=== PATIENT | female | born 1945 | race Caucasian/White ===

== ENCOUNTER 2019-09-09 14:36 | Observation (INO) ==
[2019-09-09 17:25] VITALS: BMI 25.0
[2019-09-09 20:45] LABS: BASOPHILS # (AUTO) 0.1 X10^3/uL (0.0-0.1); BASOPHILS % (AUTO) 0.7 % (0.2-1.0); EOSINOPHILS # (AUTO) 0.4 x10^3/uL (0.0-0.2); EOSINOPHILS % (AUTO) 3.5 % (0.9-2.9); HEMATOCRIT 34.1 % (36.0-47.0); HEMOGLOBIN 11.7 g/dL (12.0-16.0); LYMPHOCYTES # (AUTO) 2.3 X10^3/uL (1.3-2.9); LYMPHOCYTES % (AUTO) 22.8 % (21.0-51.0); MEAN CORPUSCULAR HEMOGLOBIN 31.1 pg (27.0-34.0); MEAN CORPUSCULAR HGB CONC 34.3 g/dL (33.0-35.0); MEAN CORPUSCULAR VOLUME 90.6 fL (80.0-100.0); MONOCYTES # (AUTO) 0.6 x10^3/uL (0.3-0.8); MONOCYTES % (AUTO) 6.3 % (0.0-13.0); NEUTROPHILS # (AUTO) 6.8 x10^3/uL (2.2-4.8); NEUTROPHILS % (AUTO) 66.7 % (42.0-75.0); PLATELET COUNT 395 X10^3/uL (150.0-450.0); RED BLOOD COUNT 3.76 X10^6/uL (3.5-5.4); RED CELL DISTRIBUTION WIDTH 13.2 % (11.6-16.5); WHITE BLOOD COUNT 10.1 X10^3/uL (3.6-10.0)
[2019-09-09 21:07] LABS: ALANINE AMINOTRANSFERASE 19 Units/L (12-78); ALBUMIN 2.9 g/dL (3.4-5.0); ALKALINE PHOSPHATASE 89 Units/L (46-116); ASPARTATE AMINO TRANSFERASE 19 Units/L (15-37); BLOOD UREA NITROGEN 17 mg/dL (7-18); CARBON DIOXIDE 32.7 mmol/L (21-32); CHLORIDE 102 mmol/L (98-107); COR CA(FOR HYPOALB) 9.9 mg/dL (8.5-10.1); COR NA(FOR HYPERGLY) 143 mmol/L (136-145); CREATININE 1.06 mg/dL (0.55-1.02); SODIUM 140 mmol/L (136-145); TOTAL PROTEIN 6.7 g/dL (6.4-8.2); TSH (3RD GENERATION) 1.602 uIU/mL (0.358-3.74); eGFR NON BLACK RACES 54 (>60)
[2019-09-09] MEDS: NS 1000 ML 1,000 ML IV SCH (21:46)
[2019-09-10] MEDS ORDERED: TYLENOL 325 MG TAB PO ONE (02:12)
[2019-09-10] MEDS: TYLENOL 325 MG TAB PO PRN (02:19)
[2019-09-10 05:42] LABS: BASOPHILS # (AUTO) 0.1 X10^3/uL (0.0-0.1); BASOPHILS % (AUTO) 0.6 % (0.2-1.0); EOSINOPHILS # (AUTO) 0.3 x10^3/uL (0.0-0.2); EOSINOPHILS % (AUTO) 3.5 % (0.9-2.9); HEMATOCRIT 31.4 % (36.0-47.0); LYMPHOCYTES # (AUTO) 2.6 X10^3/uL (1.3-2.9); LYMPHOCYTES % (AUTO) 27.3 % (21.0-51.0); MEAN CORPUSCULAR HEMOGLOBIN 31.6 pg (27.0-34.0); MEAN CORPUSCULAR VOLUME 90.1 fL (80.0-100.0); MEAN PLATELET VOLUME 8.5 fL (7.4-11.0); MONOCYTES # (AUTO) 0.6 x10^3/uL (0.3-0.8); MONOCYTES % (AUTO) 6.3 % (0.0-13.0); NEUTROPHILS # (AUTO) 5.9 x10^3/uL (2.2-4.8); NEUTROPHILS % (AUTO) 62.3 % (42.0-75.0); PLATELET COUNT 382 X10^3/uL (150.0-450.0); RED BLOOD COUNT 3.48 X10^6/uL (3.5-5.4); RED CELL DISTRIBUTION WIDTH 13.1 % (11.6-16.5); WHITE BLOOD COUNT 9.4 X10^3/uL (3.6-10.0)
[2019-09-10 05:59] LABS: ALANINE AMINOTRANSFERASE 19 Units/L (12-78); ALBUMIN 2.6 g/dL (3.4-5.0); ALKALINE PHOSPHATASE 82 Units/L (46-116); ASPARTATE AMINO TRANSFERASE 16 Units/L (15-37); BLOOD UREA NITROGEN 15 mg/dL (7-18); CALCIUM 8.3 mg/dL (8.5-10.1); CARBON DIOXIDE 29.9 mmol/L (21-32); CHLORIDE 104 mmol/L (98-107); COR CA(FOR HYPOALB) 9.4 mg/dL (8.5-10.1); COR NA(FOR HYPERGLY) 143 mmol/L (136-145); CREATININE 0.88 mg/dL (0.55-1.02); SODIUM 141 mmol/L (136-145); TOTAL PROTEIN 6.2 g/dL (6.4-8.2); eGFR NON BLACK RACES > 60 (>60)
[2019-09-10] MEDS ORDERED: MAGNESIUM SULFATE 1 GRAM/100 mL PREMIX 1 GM/100 ML BAG IV PRN (06:14)
[2019-09-10] MEDS ORDERED: K-DUR TAB 20 MEQ PO PRN (06:14)
[2019-09-10] MEDS ORDERED: KLOR-CON PO PRN (06:14)
[2019-09-10] MEDS ORDERED: POTASSIUM CHL 60 MEQ/NS 0.45% 500 ML IV PRN (06:14)
[2019-09-10] MEDS ORDERED: POTASSIUM CHLORIDE LIQ 20 MEQ UDC PO PRN (06:14)
[2019-09-10] MEDS ORDERED: MICRO K EXTEN CAP 10 MEQ PO PRN (06:14)
[2019-09-10] MEDS ORDERED: K-RIDER 10 MEQ/NS 100 ML 10 MEQ/100 ML BAG IV PRN (06:14)
[2019-09-10] MEDS ORDERED: POTASSIUM CHL 40 MEQ/NS 0.45% 500 ML IV PRN (06:14)
--- NOTE | 2019-09-10 10:00 | DR.UPDATE ---
H&P Update History and Physical Update: History and Physical reviewed and patient examined. Changes noted: Yes with the following: WAS SEEN IN THE OFFICE FOR COMPLAINTS OF DIFFICULTY SWALLOWING. SYMPTOMS HAVE BEEN PRESENTE FOR SEVERAL WEEKS NOW. SHE IS SCHEDULED FOR A BARIUM SWALLOW IN [facility], HOWEVER, HAS HAD PERSISTENT SYMPTOMS AND THERE ARE CONCERNS FOR ASPIRATION. WE ADMITTED HER FOR FURTHER EVALUATION AND TREATMENT. WE WILL OBTAIN LABS AND CONSULT GI ON ADMISSION. OTHERWISE, WE WILL FOLLOW UP WITH AM LAB AND CONTINUE TO MONITOR. Prescription drug monitoring program results: PDMP was not reviewed H&P Reviewed: Yes Patient was examined?: Yes
--- NOTE | 2019-09-10 11:14 | PCM.PROG ---
Progress Note - Progress Note for Day of Date of Exam: 09/10/19 - Subjective Subjective: WAS ADMITTED FOR DYSPHAGIA. SHE HAS A HISTORY OF CVA, DEMENTIA, HYPERLIPIDEMIA, DIABETES, AND ATRIAL FIBRILLATION. TODAY, SHE IS ALERT, LYING IN BED ON MORNING ROUNDS. SHE CONTINUES WITH DIFFICULTY SWALLOWING. SHE ALSO REPORTS LOWER BACK PAIN. PATIENTS SPOUSE REPORTS THAT SHE FELL A FEW DAYS AGO. ON EXAMINATION, HEART IS REGULAR IN RATE AND RHYTHM. BILATERAL LUNGS ARE NOTED WITH DIMINISHED LUNG SOUNDS THROUGHOUT. ABDOMEN IS ROUND, SOFT, AND NON-TENDER WITH NORMAL BOWEL SOUNDS NOTED IN ALL QUADRANTS. THERE IS TENDERNESS TO THE LUMBAR REGION. HER VITALS THIS MORNING ARE: 97.9-83-18-96%-129/65. LABS WERE OBTAINED. ABNORMAL LAB VALUES INCLUDE THE FOLLOWING: RBC 3.48, HGB 11.0, HCT 31.4, POTASSIUM 3.1, GLUCOSE 200, CALCIUM 8.3, MAGNESIUM 1.5, TOTAL PROTEIN 6.2, ALBUMIN 2.6. SHE IS CURRENTLY RECEIVING IV FLUIDS. TODAY, WE WILL START THE MAGNESIUM AND POTASSIUM PROTOCOLS. WE WILL CONSULT WITH GASTROENTEROLOGY. WE WILL OBTAIN A CHEST CT WITHOUT CONTRAST. OTHERWISE, WE PLAN TO FOLLOW UP WITH AM LABS AND CONTINUE TO MONITOR. - Past Medical Family Social History Past Med/Fam/Surg Hx: No changes since H&P Allergies: Allergies No Known Drug Allergies Allergy (Verified 09/09/19 16:58) - Review of Systems ROS: No change since H&P - Vital Signs and I&O's Vital Signs: Temperature 97.9 F Pulse Rate [Bilateral Radial] 83 Respiratory Rate 18 Blood Pressure [Right Arm] 129/65 O2 Sat by Pulse Oximetry 96 Intake and Output: Intake & Output 09/07/19 09/08/19 09/09/19 09/10/19 11:59 11:59 11:59 11:59 Intake Total 940 / 940 Balance 940 / 940 - Physical Exam Oriented: Normal Eyes: Normal Ear: Normal Nose: Normal Throat: Normal Respiratory: Generalized, Diminished Cardiovascular: Normal. negative: S3, S4, Murmur : Normal Auscultation: Bowel Sounds: Normal Palpation: Normal Tenderness: Normal Skin: Normal Musculoskeletal: Back:Lumbar, Tender Psychiatric: Normal Mood Description: Calm Affect: Normal Speech Pattern: Clear, Appropriate - Laboratory and Diagnostics Result Diagrams: 09/10/19 04:31 09/10/19 04:31 Labs: Laboratory WBC 9.4 X10^3/uL (3.6-10.0) 09/10/19 04:31 RBC 3.48 X10^6/uL (3.5-5.4) L 09/10/19 04:31 Hgb 11.0 g/dL (12.0-16.0) L 09/10/19 04:31 Hct 31.4 % (36.0-47.0) L 09/10/19 04:31 MCV 90.1 fL (80.0-100.0) 09/10/19 04:31 MCH 31.6 pg (27.0-34.0) 09/10/19 04:31 MCHC 35.0 g/dL (33.0-35.0) 09/10/19 04:31 RDW 13.1 % (11.6-16.5) 09/10/19 04:31 Plt Count 382 X10^3/uL (150.0-450.0) 09/10/19 04:31 MPV 8.5 fL (7.4-11.0) 09/10/19 04:31 Neut % (Auto) 62.3 % (42.0-75.0) 09/10/19 04:31 Lymph % (Auto) 27.3 % (21.0-51.0) 09/10/19 04:31 [place] % (Auto) 6.3 % (0.0-13.0) 09/10/19 04:31 Eos % (Auto) 3.5 % (0.9-2.9) H 09/10/19 04:31 Baso % (Auto) 0.6 % (0.2-1.0) 09/10/19 04:31 Neut # (Auto) 5.9 x10^3/uL (2.2-4.8) H 09/10/19 04:31 Lymph # (Auto) 2.6 X10^3/uL (1.3-2.9) 09/10/19 04:31 [place] # (Auto) 0.6 x10^3/uL (0.3-0.8) 09/10/19 04:31 Eos # (Auto) 0.3 x10^3/uL (0.0-0.2) H 09/10/19 04:31 Baso # (Auto) 0.1 X10^3/uL (0.0-0.1) 09/10/19 04:31 Absolute Nucleated RBC 0.0 /100WBC 09/10/19 04:31 Sodium 141 mmol/L (136-145) 09/10/19 04:31 Corrected Sodium 143 mmol/L (136-145) 09/10/19 04:31 Potassium 3.1 mmol/L (3.5-5.1) L 09/10/19 04:31 Chloride 104 mmol/L (98-107) 09/10/19 04:31 Carbon Dioxide 29.9 mmol/L (21-32) 09/10/19 04:31 BUN 15 mg/dL (7-18) 09/10/19 04:31 Creatinine 0.88 mg/dL (0.55-1.02) 09/10/19 04:31 Est GFR (MDRD) Af Amer > 60 (>60) 09/10/19 04:31 Est GFR (MDRD) Non-Af > 60 (>60) 09/10/19 04:31 Glucose 200 mg/dL (65-99) H 09/10/19 04:31 POC Glucose (mg/dL) 188 mg/dL (65-99) H 09/10/19 05:43 Calcium 8.3 mg/dL (8.5-10.1) L 09/10/19 04:31 Corrected Calcium 9.4 mg/dL (8.5-10.1) 09/10/19 04:31 Magnesium 1.5 mg/dL (1.7-2.9) L 09/10/19 04:31 Total Bilirubin 0.20 mg/dL (0.2-1.0) 09/10/19 04:31 AST 16 Units/L (15-37) 09/10/19 04:31 ALT 19 Units/L (12-78) 09/10/19 04:31 Alkaline Phosphatase 82 Units/L (46-116) 09/10/19 04:31 Total Protein 6.2 g/dL (6.4-8.2) L 09/10/19 04:31 Albumin 2.6 g/dL (3.4-5.0) L 09/10/19 04:31 Globulin 3.6 g/dL (2.5-4.5) 09/10/19 04:31 Albumin/Globulin Ratio 0.7 Ratio (1.1-2.1) L 09/10/19 04:31 TSH 3rd Generation 1.602 uIU/mL (0.358-3.74) 09/09/19 20:31 - Plan (1) Dysphagia Status: Acute Qualifiers: Dysphagia type: unspecified Qualified Code(s): R13.10 - Dysphagia, unspecified Plan: GI CONSULT, SPEECH THERAPY CONSULT, CHEST CT WITHOUT CONTRAST, CONTINUE TO MONITOR
[2019-09-10] MEDS: LOVENOX INJ 40 MG SYR SC SCH (11:53)
[2019-09-10] MEDS: NS 1000 ML 1,000 ML IV SCH (11:53)
--- NOTE | 2019-09-10 12:47 | CT ---
HISTORYDysphagia and shortness of breathSTUDYCT of the thorax without contrast. Sagittal and coronal reformations were provided. Dose reduction techniques were utilized.COMPARISONNoneFINDINGSThe lungs are clear. There is no pleural effusion. There is no obvious adenopathy. There are several less than 1 cm lymph nodes at the aortopulmonary window of the mediastinum. There is an 8 mm nodule right anterior mediastinal lymph node. There is no pericardial effusion. There is no hiatal hernia. There is heavy proximal left coronary artery calcification. The visualized upper abdomen is unremarkable status post cholecystectomy. The pancreas is atrophic. There is fatty infiltration of the pancreas diffusely. There are degenerative changes of the spine diffusely with diffuse ossification of the anterior longitudinal ligament suggesting ankylosing spondylitis.IMPRESSIONNo evidence for acute disease in the thorax.Electronically signed by: NEDA VELASQUEZ (Sep 10, 2019 12:46:16)
[2019-09-10] MEDS ORDERED: COLACE CAP 100 MG PO PRN (21:15)
[2019-09-10] MEDS ORDERED: MILK OF MAGNESIA PO PRN (21:15)
[2019-09-10] MEDS ORDERED: NORVASC TAB 2.5 MG PO SCH (22:30)
[2019-09-10] MEDS ORDERED: CRESTOR TAB 10 MG PO SCH (22:30)
[2019-09-10] MEDS ORDERED: CARAFATE ORAL SUSP PO SCH (22:30)
[2019-09-10] MEDS ORDERED: CYMBALTA PO SCH (22:30)
[2019-09-10] MEDS ORDERED: NORVASC TAB 2.5 MG ONE (22:58)
[2019-09-10] MEDS: HumuLIN R SUBCUT PRN (23:12)
[2019-09-11] MEDS: NS 1000 ML 1,000 ML IV SCH (01:00)
[2019-09-11 05:59] LABS: BASOPHILS # (AUTO) 0.1 X10^3/uL (0.0-0.1); BASOPHILS % (AUTO) 0.6 % (0.2-1.0); EOSINOPHILS # (AUTO) 0.4 x10^3/uL (0.0-0.2); EOSINOPHILS % (AUTO) 3.6 % (0.9-2.9); HEMATOCRIT 36.4 % (36.0-47.0); HEMOGLOBIN 12.5 g/dL (12.0-16.0); LYMPHOCYTES # (AUTO) 2.5 X10^3/uL (1.3-2.9); LYMPHOCYTES % (AUTO) 24.7 % (21.0-51.0); MEAN CORPUSCULAR HEMOGLOBIN 30.9 pg (27.0-34.0); MEAN CORPUSCULAR HGB CONC 34.3 g/dL (33.0-35.0); MEAN CORPUSCULAR VOLUME 90.1 fL (80.0-100.0); MEAN PLATELET VOLUME 8.2 fL (7.4-11.0); MONOCYTES # (AUTO) 0.6 x10^3/uL (0.3-0.8); MONOCYTES % (AUTO) 6.3 % (0.0-13.0); NEUTROPHILS # (AUTO) 6.5 x10^3/uL (2.2-4.8); NEUTROPHILS % (AUTO) 64.8 % (42.0-75.0); PLATELET COUNT 439 X10^3/uL (150.0-450.0); RED BLOOD COUNT 4.04 X10^6/uL (3.5-5.4); RED CELL DISTRIBUTION WIDTH 13.1 % (11.6-16.5); WHITE BLOOD COUNT 10.1 X10^3/uL (3.6-10.0)
[2019-09-11] MEDS ORDERED: GLUCOPHAGE ONE (06:09)
[2019-09-11 06:28] LABS: ALANINE AMINOTRANSFERASE 18 Units/L (12-78); ALBUMIN 3.1 g/dL (3.4-5.0); ALKALINE PHOSPHATASE 95 Units/L (46-116); ASPARTATE AMINO TRANSFERASE 17 Units/L (15-37); BLOOD UREA NITROGEN 13 mg/dL (7-18); CALCIUM 8.8 mg/dL (8.5-10.1); CARBON DIOXIDE 28.1 mmol/L (21-32); CHLORIDE 102 mmol/L (98-107); COR CA(FOR HYPOALB) 9.5 mg/dL (8.5-10.1); COR NA(FOR HYPERGLY) 143 mmol/L (136-145); CREATININE 0.97 mg/dL (0.55-1.02); SODIUM 139 mmol/L (136-145); TOTAL PROTEIN 7.2 g/dL (6.4-8.2); eGFR NON BLACK RACES > 60 (>60)
[2019-09-11] MEDS ORDERED: CARAFATE ORAL SUSP PO PRN (06:33)
[2019-09-11] MEDS ORDERED: AMARYL TAB 4 MG PO SCH (07:00)
[2019-09-11] MEDS ORDERED: GLUCOPHAGE PO SCH (07:00)
[2019-09-11] MEDS: HumuLIN R SUBCUT PRN (07:09)
[2019-09-11] MEDS ORDERED: JANUVIA PO SCH (09:00)
[2019-09-11] MEDS: LOVENOX INJ 40 MG SYR SC SCH (09:55)
[2019-09-11 11:40] VITALS: BP 148/67
[2019-09-11] MEDS: TYLENOL 325 MG TAB PO PRN (11:58)
[2019-09-11] MEDS ORDERED: SYNTHROID 50 mcg TAB PO SCH (16:30)
[2019-09-11] MEDS ORDERED: SNACK - Diabetic Appropriate PO SCH (20:00)
== END 2019-09-11 11:55 | disposition home or self-care (01) ==
LOC: MED/SURG
PROVIDERS: ADMIT Internal Medicine; ATTEND Internal Medicine
CPT/HCPCS: 36415; 71250; 80053; 83735; 84443; 85025; 96360; 96361; 96372; A4222; G0378; J1650; J1815; J3475; J3490; J7030

== ENCOUNTER 2022-03-19 10:17 | Observation (INO) ==
[2022-03-19] MEDS ORDERED: NS 500 ML IV 500 ML IV ONE ×2 (10:32→10:33)
[2022-03-19] MEDS ORDERED: ZOFRAN INJ 4 MG VIAL IVP ONE (10:32)
[2022-03-19] MEDS ORDERED: ZOFRAN INJ 4 MG VIAL ONE (10:33)
[2022-03-19 10:38] LABS: BASOPHILS # (AUTO) 0.1 X10^3/uL (0.0-0.1); BASOPHILS % (AUTO) 0.8 % (0.2-1.0); EOSINOPHILS # (AUTO) 0.1 x10^3/uL (0.0-0.2); EOSINOPHILS % (AUTO) 1.7 % (0.9-2.9); HEMATOCRIT 30.8 % (36.0-47.0); HEMOGLOBIN 10.8 g/dL (12.0-16.0); LYMPHOCYTES # (AUTO) 1.5 X10^3/uL (1.3-2.9); LYMPHOCYTES % (AUTO) 22.5 % (21.0-51.0); MEAN CORPUSCULAR HEMOGLOBIN 33.5 pg (27.0-34.0); MEAN CORPUSCULAR VOLUME 95.7 fL (80.0-100.0); MEAN PLATELET VOLUME 9.8 fL (7.4-11.0); MONOCYTES # (AUTO) 0.4 x10^3/uL (0.3-0.8); MONOCYTES % (AUTO) 5.9 % (0.0-13.0); NEUTROPHILS # (AUTO) 4.6 x10^3/uL (2.2-4.8); NEUTROPHILS % (AUTO) 69.1 % (42.0-75.0); RED BLOOD COUNT 3.21 X10^6/uL (3.5-5.4); RED CELL DISTRIBUTION WIDTH 12.6 % (11.6-16.5); WHITE BLOOD COUNT 6.7 X10^3/uL (3.6-10.0)
--- NOTE | 2022-03-19 10:38 | DR.NAUSEAF ---
HPI Time Seen Time Seen by Provider: 03/19/22 10:27 Primary Care Physician Primary Care Physician: DR ELIZABETH Complaints Chief Complaint Doctors Comments: 76 y/o female brought in by spouse for evaluation. Pt with h/o dementia, chronic GI issues. Has not been eating, drinking well lately. Went to get routine labs at PCP, they couldn't get blood, sent her over her in case she is dehydrated. Pt denies pain. Has recurrent nausea, tried to vomit prior to arrival. Having generalized weakness. Denies fever, chills, URI symptoms, urinary issues. + worsening dementia, cared for at home by spouse. Chief Complaint:: PT'S STATES THAT PT'S DEMENTIA HAS WORSENED SIGNIFICANTLY OVER THE PAST FEW WEEKS. PT HAS HAD DECREASED APPETITE AND WON'T EAT OR DRINK. SHE ALSO HAS HAD INTERMITTENT NAUSEA AND VOMITING. PT HAS BEEN FOLLOWED BY DR ELIZABETH AND DR MICHAELS FOR THESE COMPLAINTS. COVID-19 Coronavirus risk:travel/contact w/high risk person: No Has patient experienced Coronavirus symptoms: No Reviewed Nurses Notes Reviewed: Yes Source History Provided: Family Member Mode of Arrival Mode of Arrival: Wheelchair Timing Onset of Chief Complaint: 03/19/22 PMH PMH Past Medical History: Yes Past Medical History: Dementia, Diabetes and Hypertension Past Medical History Comment: BLINDNESS, DIABETIC RETINOPATHY Past Surgical History: Yes Surgical History: Cholecystectomy Past Surgical History Comment: LUMPECTOMY, ESOPHAGUS STRETCHED Family History History of Family Medical Conditions: No Family Medical History: Diabetes Mellitus, Cancer, Coronary Artery Disease and Hypertension Social History Does patient currently use any type of tobacco product: No Have you used tobacco products in the last 12 months: No Type of Tobacco Use: None Does any household member use tobacco: No Alcohol Use: None Do you use any recreational Drugs:: No Lives With: Spouse Lives Where: Home Travel Risk Coronavirus risk:travel/contact w/high risk person: No Has patient experienced Coronavirus symptoms: No Infectious screening In the last 2 months have you had wt loss of >10#?: NO Have you had fever, night sweats or hemotysis?: No Have you traveled outside the country in the last 6 months?: No Isolation: Standard ROS Review of Systems Constitutional: Malaise and Weakness Eyes: No Symptoms Reported ENTM: No Symptoms Reported Respiratoy: No Symptoms Reported Cardiovascular: No Symptoms Reported Gastrointestinal/Abdominal: Nausea and Vomiting Genitourinary: No Symptoms Reported Neurological: Weakness Musculoskeletal: No Symptoms Reported Integumentary: No Symptoms Reported Hematologic/Lymphatic: No Symptoms Reported All Other Systems: Reviewed and Negative PE Vital Signs Vitals: Temperature 98.1 F Pulse Rate 90 Respiratory Rate 17 Blood Pressure [Right Arm] 148/67 Blood Pressure 142/67 O2 Sat by Pulse Oximetry 95 General General Appearance: Alert and In No Apparent Distress Head Head Exam: Normal Inspection ENT ENT Exam: Other (mucous membranes somewhat dry) Respiratory Respiratory Exam: Normal Lung Sounds Bilat; negative Accessory Muscle Use or Respiratory Distress Respiratory Exam: Bilateral: Clear to Auscultation Cardiovascular Cardiovascular Exam: Regular Rate, Normal Rhythm and Normal Heart Sounds Abdominal Exam Abdominal Exam: Normal Inspection, Normal Bowel Sounds and Soft; negative Tenderness Extremities Extremities Exam: Normal Inspection; negative Edema Neurologic Neurological Exam: negative Motor Sensory Deficit Psychiatric Psychiatric Exam: Normal Affect Skin Skin Exam: Warm and Dry MDM Differential Diagnosis Differential Diagnosis: Considerations may Include:: Other (dehydration, electrolyte abnormalities, UTI) COURSE Treatment Treatment: w/u initiated. Given IV fluids, IV zofran. 1257 - pt remains stable here. No active vomiting. W/u unremarkable. Discussed with Dr Elizabeth, will admit to continue hydration. ROR Labs Reviewed Laboratory Results Reviewed?: Yes Result Diagrams: 03/19/22 10:25 03/19/22 10:25 Laboratory: WBC 6.7 X10^3/uL (3.6-10.0) 03/19/22 10:25 RBC 3.21 X10^6/uL (3.5-5.4) L 03/19/22 10:25 Hgb 10.8 g/dL (12.0-16.0) L 03/19/22 10:25 Hct 30.8 % (36.0-47.0) L 03/19/22 10:25 MCV 95.7 fL (80.0-100.0) 03/19/22 10:25 MCH 33.5 pg (27.0-34.0) 03/19/22 10:25 MCHC 35.0 g/dL (33.0-35.0) 03/19/22 10:25 RDW 12.6 % (11.6-16.5) 03/19/22 10:25 Plt Count 222 X10^3/uL (150.0-450.0) 03/19/22 10:25 MPV 9.8 fL (7.4-11.0) 03/19/22 10:25 Neut % (Auto) 69.1 % (42.0-75.0) 03/19/22 10:25 Lymph % (Auto) 22.5 % (21.0-51.0) 03/19/22 10:25 [place] % (Auto) 5.9 % (0.0-13.0) 03/19/22 10:25 Eos % (Auto) 1.7 % (0.9-2.9) 03/19/22 10:25 Baso % (Auto) 0.8 % (0.2-1.0) 03/19/22 10:25 Neut # (Auto) 4.6 x10^3/uL (2.2-4.8) 03/19/22 10:25 Lymph # (Auto) 1.5 X10^3/uL (1.3-2.9) 03/19/22 10:25 [place] # (Auto) 0.4 x10^3/uL (0.3-0.8) 03/19/22 10:25 Eos # (Auto) 0.1 x10^3/uL (0.0-0.2) 03/19/22 10:25 Baso # (Auto) 0.1 X10^3/uL (0.0-0.1) 03/19/22 10:25 Absolute Nucleated RBC 0.0 /100WBC 03/19/22 10:25 Sodium 142 mmol/L (136-145) 03/19/22 10:25 Corrected Sodium 142 mmol/L (136-145) 03/19/22 10:25 Potassium 4.0 mmol/L (3.5-5.1) 03/19/22 10:25 Chloride 104 mmol/L (98-107) 03/19/22 10:25 Carbon Dioxide 29.0 mmol/L (21-32) 03/19/22 10:25 BUN 23 mg/dL (7-18) H 03/19/22 10:25 Creatinine 1.31 mg/dL (0.55-1.02) H 03/19/22 10:25 Est GFR (MDRD) Af Amer 51 (>60) L 03/19/22 10:25 Est GFR (MDRD) Non-Af 42 (>60) L 03/19/22 10:25 Glucose 116 mg/dL (65-99) H 03/19/22 10:25 Calcium 9.3 mg/dL (8.5-10.1) 03/19/22 10:25 Corrected Calcium 9.9 mg/dL (8.5-10.1) 03/19/22 10:25 Total Bilirubin 0.40 mg/dL (0.2-1.0) 03/19/22 10:25 AST 66 Units/L (15-37) H 03/19/22 10:25 ALT 80 Units/L (12-78) H 03/19/22 10:25 Alkaline Phosphatase 42 Units/L (46-116) L 03/19/22 10:25 Creatine Kinase 44 Units/L (26-192) 03/19/22 10:25 CK-MB (CK-2) 1.3 ng/mL (0-4.0) 03/19/22 10:25 CK/CKMB % Calc 3.0 % (<4) 03/19/22 10:25 Troponin I High Sens 10.3 ng/L (4.0-60.0) 03/19/22 10:25 Total Protein 6.4 g/dL (6.4-8.2) 03/19/22 10:25 Albumin 3.3 g/dL (3.4-5.0) L 03/19/22 10:25 Globulin 3.1 g/dL (2.5-4.5) 03/19/22 10:25 Albumin/Globulin Ratio 1.1 Ratio (1.1-2.1) 03/19/22 10:25 Lipase 43 Units/L (73-393) L 03/19/22 10:25 Specimen Type Catherized urine 03/19/22 11:53 Urine Color Pale yellow (YELLOW) 03/19/22 11:53 Urine Appearance Clear (CLEAR) 03/19/22 11:53 Urine pH 6.0 (5.0 - 8.0) 03/19/22 11:53 Ur Specific [place] 1.010 (1.000-1.030) 03/19/22 11:53 Urine Protein 2+ (NEGATIVE) 03/19/22 11:53 Urine Glucose (UA) Negative (NEGATIVE) 03/19/22 11:53 Urine Ketones Negative (NEGATIVE) 03/19/22 11:53 Urine Blood 1+ (NEGATIVE) 03/19/22 11:53 Urine Nitrite Negative (NEGATIVE) 03/19/22 11:53 Urine Bilirubin Negative (NEGATIVE) 03/19/22 11:53 Urine Urobilinogen Normal (NORMAL) 03/19/22 11:53 Ur Leukocyte Esterase Negative (NEGATIVE) 03/19/22 11:53 Urine RBC 3-5 /HPF (0-3) A 03/19/22 11:53 Urine WBC 0-2 /HPF (0-5) 03/19/22 11:53 Ur Squamous Epith Cells Rare /HPF (NEGATIVE) 03/19/22 11:53 Urine Bacteria Trace /HPF (NEGATIVE) 03/19/22 11:53 Hyaline Casts Rare /LPF (NEGATIVE) 03/19/22 11:53 Ur Culture Indicated? No/not indicated 03/19/22 11:53 No acute abnormalities XRAY X-ray Results: CXR without acute abnormalities EKG Rate: 100 [place]: Normal Rhythm: NSR Block: None Hypertrophy: LAE ST: Nonsp Opioid Opioid Risk Tool Age (Humberto box if 16-45): No History of Preadolescent Sexual Abuse: No Total: 0 Total Score Risk Category: Low Risk Copyright: Jack VAUGHN predicting aberrant behaviors Discharge Plan Diagnosis Discharge Problem: Generalized weakness, Anorexia, Dementia Discharge Plan Patient Disposition: 09 ADMITTED INPATIENT Condition: Stable Prescriptions: No Action metformin [Glucophage] 500 mg tablet 1,000 mg PO BID sucralfate [Carafate] 100 mg/mL suspension 2 ml PO BID PRN amlodipine [Norvasc] 2.5 mg tablet 2.5 mg PO HS clopidogrel [Plavix] 75 mg tablet 75 mg PO DAILY levothyroxine 50 mcg tablet 50 mcg PO DAILY glimepiride [Amaryl] 4 mg tablet 4 mg PO BID rosuvastatin [Crestor] 40 mg tablet 40 mg PO HS Label Comments: TAKE 1 TABLET BY MOUTH EVERY DAY AT BEDTIME duloxetine [Cymbalta] 60 mg capsule,delayed release(DR/EC) 60 mg PO HS Januvia 100 mg tablet 100 mg PO DAILY aspirin 325 mg Tablet 325 mg PO DAILY Health Concerns: Post Hospitalization: new medications and changes needed to prevent readmission or further decline. Pt educated and given instructions on all concerns. Plan of Treatment: Continue with present treatment and follow up plan. Pt is to keep follow up appointment as instructed and take medications as ordered. Orders to Discharge Patient Discharge Orders: Discharge (Routine); Ordered 03/19/22 Ordered By: Leonides Mendez Follow ups/Referrals Follow ups/Referrals: Chino Elizabeth [Primary Care Provider] - 3 days Instructions Stand Alone Forms: Precautions for COVID19, [facility], Patient Portal, Social Distancing
[2022-03-19 11:01] LABS: ALBUMIN 3.3 g/dL (3.4-5.0); CALCIUM 9.3 mg/dL (8.5-10.1); COR CA(FOR HYPOALB) 9.9 mg/dL (8.5-10.1); CREATINE KINASE MB 1.3 ng/mL (0-4.0); CREATININE 1.31 mg/dL (0.55-1.02); TOTAL PROTEIN 6.4 g/dL (6.4-8.2)
[2022-03-19 12:10] LABS: BILIRUBIN,URINE NEGATIVE (NEGATIVE); BLOOD/HEMOGLOBIN,URINE 1+ (NEGATIVE); GLUCOSE, URINE NEGATIVE (NEGATIVE); KETONES,URINE NEGATIVE (NEGATIVE); LEUKOCYTE ESTERASE ,URINE NEGATIVE (NEGATIVE); NITRITES,URINE NEGATIVE (NEGATIVE); PROTEIN,URINE 2+ (NEGATIVE); UROBILINOGEN,URINE NORMAL (NORMAL)
[2022-03-19 12:15] LABS: APPEARANCE,URINE CLEAR (CLEAR); BACTERIA,URINE TRACE /HPF (NEGATIVE); COLOR,URINE PALE YELLOW (YELLOW); HYALINE CASTS, URINE RARE /LPF (NEGATIVE); SQUAMOUS EPITHELIAL CELL,UR RARE /HPF (NEGATIVE)
--- NOTE | 2022-03-19 14:18 | RAD ---
HISTORYHIGHBLOOD PRESSURE, NAUSEASTUDYCHEST, 1 [id number]/20/2019FINDINGSThe cardiomediastinal silhouette is normal in size. No acute airspace disease. No pneumothorax or effusion. The bony thorax appears intact.IMPRESSIONNo acute cardiopulmonary disease.Electronically signed by: DEBBIE OCHOA (Mar 19, 2022 14:16:22)
[2022-03-19] MEDS: NS 1,000 ML IV 1,000 ML IV SCH (15:30)
[2022-03-19] MEDS ORDERED: ZOFRAN INJ 4 MG VIAL IVP PRN (20:06)
[2022-03-19] MEDS ORDERED: GLUCOPHAGE ONE (21:01)
[2022-03-19] MEDS: CYMBALTA PO SCH (21:42)
[2022-03-19] MEDS: PEPCID 20 MG VIAL 20 MG in NS 50 ML IV 50 ML IV SCH (21:42)
[2022-03-19] MEDS: PROTONIX INJ 40 MG VIAL IVP SCH (21:42)
[2022-03-19] MEDS: CRESTOR TAB 10 MG PO SCH (21:42)
[2022-03-19] MEDS: GLUCOPHAGE PO SCH (21:42)
[2022-03-19] MEDS: AMARYL TAB 4 MG PO SCH (21:42)
[2022-03-20] MEDS ORDERED: CATAPRES TAB 0.1 MG PO ONE (03:49)
[2022-03-20] MEDS: NS 1,000 ML IV 1,000 ML IV SCH ×2 (05:07→17:24)
[2022-03-20 05:35] LABS: BASOPHILS % (AUTO) 0.8 % (0.2-1.0); EOSINOPHILS # (AUTO) 0.1 x10^3/uL (0.0-0.2); EOSINOPHILS % (AUTO) 1.8 % (0.9-2.9); HEMATOCRIT 27.8 % (36.0-47.0); HEMOGLOBIN 9.7 g/dL (12.0-16.0); LYMPHOCYTES # (AUTO) 1.6 X10^3/uL (1.3-2.9); LYMPHOCYTES % (AUTO) 28.9 % (21.0-51.0); MEAN CORPUSCULAR HEMOGLOBIN 33.5 pg (27.0-34.0); MEAN CORPUSCULAR VOLUME 95.8 fL (80.0-100.0); MEAN PLATELET VOLUME 9.8 fL (7.4-11.0); MONOCYTES # (AUTO) 0.5 x10^3/uL (0.3-0.8); MONOCYTES % (AUTO) 8.2 % (0.0-13.0); NEUTROPHILS # (AUTO) 3.3 x10^3/uL (2.2-4.8); NEUTROPHILS % (AUTO) 60.3 % (42.0-75.0); RED CELL DISTRIBUTION WIDTH 12.4 % (11.6-16.5); WHITE BLOOD COUNT 5.5 X10^3/uL (3.6-10.0)
[2022-03-20 06:00] LABS: ALANINE AMINOTRANSFERASE 63 Units/L (12-78); ALBUMIN 2.7 g/dL (3.4-5.0); ALKALINE PHOSPHATASE 35 Units/L (46-116); AMYLASE 37 Units/L (25-115); ASPARTATE AMINO TRANSFERASE 46 Units/L (15-37); BLOOD UREA NITROGEN 17 mg/dL (7-18); CALCIUM 8.3 mg/dL (8.5-10.1); CARBON DIOXIDE 27.6 mmol/L (21-32); CHLORIDE 106 mmol/L (98-107); COR CA(FOR HYPOALB) 9.3 mg/dL (8.5-10.1); CREATININE 1.21 mg/dL (0.55-1.02); LIPASE 40 Units/L (73-393); SODIUM 142 mmol/L (136-145); TOTAL PROTEIN 5.6 g/dL (6.4-8.2); eGFR NON BLACK RACES 46 (>60)
[2022-03-20] MEDS ORDERED: K-DUR TAB 20 MEQ PO PRN (06:08)
[2022-03-20] MEDS ORDERED: MAGNESIUM SULFATE 1 GRAM/100 mL PREMIX 1 G/100 ML BAG IV PRN (06:08)
[2022-03-20] MEDS ORDERED: KLOR-CON PO PRN (06:08)
[2022-03-20] MEDS ORDERED: POTASSIUM CHL 60 MEQ/NS 0.45% 500 ML IV PRN (06:08)
[2022-03-20] MEDS ORDERED: POTASSIUM CHLORIDE LIQ 20 MEQ UDC PO PRN (06:08)
[2022-03-20] MEDS ORDERED: POTASSIUM CHL 40 MEQ/NS 0.45% 500 ML IV PRN (06:08)
[2022-03-20] MEDS ORDERED: K-RIDER 10 MEQ/NS 100 ML 10 MEQ/100 ML BAG IV PRN (06:08)
[2022-03-20] MEDS ORDERED: MICRO K EXTEN CAP 10 MEQ PO PRN (06:08)
--- NOTE | 2022-03-20 07:52 | RAD ---
HISTORYNausea, vomitSTUDYAcute abdominal seriesCOMPARISONNoneFINDINGSHeart size is normal. [place] are normal. Lung salmon are clear. Abdominal gas pattern was nonspecific and nonobstructive. No pneumoperitoneum is identified. No abnormal masses or abnormal calcifications are identified. Regional skeleton is intact.IMPRESSIONUnremarkable acute abdominal seriesElectronically signed by: DEBBIE OCHOA (Mar 20, 2022 07:50:13)
[2022-03-20] MEDS: SYNTHROID 50 mcg TAB PO SCH (08:00)
[2022-03-20] MEDS: PROTONIX INJ 40 MG VIAL IVP SCH ×2 (09:00→21:29)
[2022-03-20] MEDS: PEPCID 20 MG VIAL 20 MG in NS 50 ML IV 50 ML IV SCH ×2 (09:00→21:29)
[2022-03-20] MEDS ORDERED: JANUVIA PO SCH (09:00)
[2022-03-20] MEDS ORDERED: PATIENT'S HOME MEDICATION (Mecobalamin (Vitamin B12) [B12 Active] 1,000 mcg Tablet,Chewabl PO SCH (09:00)
[2022-03-20] MEDS ORDERED: ASPIRIN 325 MG PO SCH (09:00)
[2022-03-20 09:04] VITALS: BMI 19.3
[2022-03-20] MEDS: AMARYL TAB 4 MG PO SCH (15:50)
[2022-03-20] MEDS: ASPIRIN PO SCH (15:50)
[2022-03-20] MEDS: PLAVIX PO SCH (15:51)
[2022-03-20] MEDS: VITAMIN D3 25 mcg (1,000 UNITS) PO SCH (15:52)
[2022-03-20] MEDS: MEGACE PO SCH ×2 (15:52→21:29)
[2022-03-20] MEDS: VITAMIN B-12 PO SCH (15:52)
[2022-03-20] MEDS ORDERED: NovoLIN R (or HumuLIN R) SUBCUT PRN (15:54)
[2022-03-20] MEDS: GLUCOPHAGE PO SCH (17:23)
[2022-03-20] MEDS: REGLAN INJ 10 MG VIAL IVP SCH ×2 (17:30→21:30)
--- NOTE | 2022-03-20 17:59 | DR.H&P ---
H&P - History & Physical for Day of: H&P Date: 03/19/22 - Chief Complaint Chief Complaint: WEAKNESS, DECREASED ORAL INTAKE, CONFUSION, NAUSEA AND VOMITING - History of Present Illness History of Present Illness: IS A 76 YEAR OLD PATIENT OF OURS. SHE WAS BROUGHT TO THE ER BY HER SPOUSE DUE TO COMPLAINTS OF WORSENING CONFUSION, DECREASED ORAL INTAKE, INCREASED WEAKNESS, AND RECURRENT NAUSEA AND VOMITING. SYMPTOMS STARTED 2-3 WEEKS AGO. SHE WAS SEEN IN THE OFFICE PRIOR TO ARRIVAL TO THE ER. WE PLANNED TO OBTAIN LABS, BUT WE WERE UNABLE DUE TO HER BEING A DIFFICULT STICK. PATIENT DENIES CURRENT PAIN, FEVER, CHILLS, UPPER RESPIRATORY SYMTPOMS, OR URINARY ISSUES. SHE IS CARED FOR AT HOME BY HER SPOUSE. HER PMH INCLUDES DEMENTIA, DM II, HTN, BLINDNESS, DIABETIC RETINOPATHY, CHOLECYSTECTOMY, LUMPECTOMY, AND HER ESOPHAGUS WAS STRETCHED IN OCTOBER. SHE ALSO HAD AN EGD AT THAT TIME. IT REVEALED GASTRITIS. SHE HAD A GASTRIC EMPTYING DONE IN JANUARY. IT REVEALED GASTROPARESIS. ON ARRIVAL TO THE ER, VITALS WERE: 98.4-574-28-100%-180/ 81. LABS WERE OBTAINED. ABNORMAL LAB VALUES INCLUDE THE FOLLOWING: WBC 6.7, RBC 3.21, HGB 10.8, HCT 30.8, PLT COUNT 222, SODIUM 142, POTASSIUM 4.0, CHLORIDE 104, BUN 23, CREATININE 1.31, GLUCOSE 116, CALCIUM 9.3, TOTAL BILI 0.40, AST 66, ALT 80, ALK PHOS 42, TOTAL PROTEIN 6.4, ALBUMIN 3.3. CARDIAC ENZYMES WERE WITHIN NORMAL LIMITS. A URINALYSIS WAS OBTAINED. WBC 0-2, RBC 3-5, BACTERIA TRACE, LEUKOYCTES NEGATIVE. NITRITE NEGATIVE, BLOOD 1+. COVID-19 NEGATIVE. EKG WAS OBTAINED AND REVEALED: NORMAL SINUS RHYTHM WITH HR 100. CHEST XRAY WAS OBTAINED AND REVEALED: No acute cardiopulmonary disease. ABDOMINAL SERIES WAS OBTAINED AND REVEALED: Unremarkable acute abdominal series. IN THE ER, SHE WAS GIVEN A NORMAL SALINE BOLUS, ZOFRAN 4MG IV X 1, AND CATAPRES 0.1MG PO X 1. BLOOD PRESSURE DECREASED TO 150/71. SHE WAS ADMITTED TO THE HOSPITAL FOR FURTHER EVALUATION AND TREATMENT OF GENERALIZED WEAKNESS, ANOREXIA, DEMENTIA, NAUSEA AND VOMITING. SHE WAS STARTED ON NORMAL SALINE AT 80ML/HR, PEPCID 20MG IV BID, PROTONIX 40MG IV BID, REGLAN 5MG IV ACHS, OTBS ACHS, HUMULIN R SLIDING SCALE, MEGACE 40MG PO BID, THE POTASSIUM AND MAGNESIUM PROTOCOLS, AND HER HOME MEDICATIONS OF ASPIRIN, VITAMIN D3, CYMBALTA, SYNTHROID, GLUCOPHAGE, AND CRESTOR WERE RESUMED. TODAY, WE WILL OBTAIN AN ABDOMEN/PELVIS CT WITH CONTRAST AND A BRAIN CT WITHOUT CONTRAST TO RULE OUT ACUTE PROCESS. OTHERWISE, WE PLAN TO FOLLOW-UP WITH AM LABS AND CONTINUE TO MONITOR. TIME SPENT ON CLINICAL ASSESSMENT, REVIEWING LABS AND IMAGING, DECISION MAKING, AND DOCUMENTATION GREATER THAN 75 MINUTES. - Past Medical History Past Medical History: Hypertension, Diabetes, Dementia Additional Medical History: DIABETIC RETINOPATHY, BLINDNESS - Past Surgical History Surgical History: Cholecystectomy, Other Additional Surgical History: LUMPECTOMY, ESOPHAGUS STRETCHED - Family History Family Medical History: Diabetes Mellitus, Cancer, Hypertension - Social History Does patient currently use any type of tobacco product: No Have you used tobacco products in the last 12 months: No Type of Tobacco Use: None How many years tobacco product used: 0 Does any household member use tobacco: No Alcohol Use: None - Medications Home Medications: No Known Drug Allergies Allergy (Verified 09/09/19 16:58) CONTINUE taking the following medications aspirin 325 mg capsule 325 mg PO DAILY 03/19/22 [History] cholecalciferol (vitamin D3) 10 mcg (400 unit) capsule (Vitamin D3) 10 mcg PO DAILY 03/19/22 [History] lansoprazole 30 mg capsule,delayed release 30 mg PO BID 03/19/22 [History] mecobalamin (vitamin B12) 1,000 mcg chewable tablet (B12 Active) 1,000 mcg PO DAILY 03/19/22 [History] - Review of Systems Constitutional: Weakness Eyes: No Symptoms Reported ENT: No Symptoms Reported Respiratory: No Symptoms Reported Cardiovascular: No Symptoms Reported Gastrointestinal: See HPI, Nausea, Vomiting Genitourinary: No Symptoms Reported Musculoskeletal: No Symptoms Reported Skin: No Symptoms Reported Neurological: Weakness, Confusion - Physical Exam Vital Signs: Temperature 98.2 F Pulse Rate [Bilateral Radial] 74 Pulse Rate 90 Respiratory Rate 20 Blood Pressure [Right Arm] 132/66 Blood Pressure 171/77 O2 Sat by Pulse Oximetry 97 Oriented: Person Eyes: Normal Ear: Normal Nose: Normal Throat: Normal Respiratory: Clear Throughout Cardiovascular: Normal : Normal Auscultation: Bowel Sounds: Normal Palpation: Normal Tenderness: Normal Skin: Decreased [place] Musculoskeletal: Normal Psychiatric: Normal Mood Description: Calm Affect: Normal Speech Pattern: Clear - Assessment/Plan (1) Generalized weakness Status: Acute Plan: ADMIT, NORMAL SALINE AT 80ML/HR, PEPCID 20MG IV BID, PROTONIX 40MG IV BID, REGLAN 5MG IV ACHS, OTBS ACHS, HUMULIN R SLIDING SCALE, MEGACE 40MG PO BID, THE POTASSIUM AND MAGNESIUM PROTOCOLS, AND HER HOME MEDICATIONS OF ASPIRIN, VITAMIN D3, CYMBALTA, SYNTHROID, GLUCOPHAGE, AND CRESTOR WERE RESUMED. (2) Nausea and vomiting Qualifiers: Vomiting type: unspecified Qualified Code(s): R11.2 - Nausea with vomiting, unspecified Status: Acute Plan: OBTAIN ABDOMEN/PELVIS CT WITH CONTRAST (3) Dysphagia Qualifiers: Dysphagia type: unspecified Qualified Code(s): R13.10 - Dysphagia, unspecified Status: Acute (4) Anorexia Status: Acute (5) Dementia Qualifiers: Dementia type: unspecified type Dementia behavioral disturbance: without behavioral disturbance Qualified Code(s): F03.90 - Unspecified dementia w ithout behavioral disturbance Status: Chronic (6) HTN (hypertension) Qualifiers: Hypertension type: primary hypertension Qualified Code(s): I10 - Essential (primary) hypertension Status: Chronic (7) DM II (diabetes mellitus, type II), controlled Qualifiers: Diabetes mellitus assisted insulin use: with assisted use Diabetes mellitus complication status: with hyperglycemia Qualified Code(s): E11.65 - Type 2 diabetes mellitus with hyperglycemia; Z79.4 - custodial (current) use of insulin Status: Chronic (8) Diabetic gastroparesis Status: Acute (9) Blindness Qualifiers: Right eye visual impairment category: right - unspecified impairment Left eye visual impairment category: left - unspecified blindness Qualified Code(s): H54.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
[2022-03-20] MEDS: CRESTOR TAB 10 MG PO SCH (21:29)
[2022-03-20] MEDS: CYMBALTA PO SCH (21:29)
[2022-03-20] MEDS: SNACK - Diabetic Appropriate PO SCH (21:30)
--- NOTE | 2022-03-20 21:46 | CT ---
HISTORYincreased ams, weaknessSTUDYBRAIN W/O CONCOMPARISONNoneTECHNIQUECT scan of the brain was obtained from skull base to vertex without contrast. Dose reduction techniques were utilized.Contrast: NoneFINDINGSThere is diffuse cerebral and cerebellar volume loss. There is patchy scattered hypodensity in the hemispheric white matter. There is a focal chronic cavitated lacunar infarct of the left frontal puente radiata. While these are nonspecific findings, this most likely represents microvascular ischemic disease changes. There is no evidence of intracranial hemorrhage or mass-effect. No extra-axial fluid collections are identified. Prominent dural calcification of the interhemispheric falx is noted.There are extensive atherosclerotic changes noted of the cavernous carotid arteries.Skull base and calvarium are intact. Paranasal sinuses reveals complete opacification of the left maxillary sinus with thickened castillo to the left maxillary sinus castillo. There is also significant mucosal thickening of the posterior left sphenoid sinus. There is calcification of the extra-axial space at the C1-2 articulation consistent with partially calcified pannus formation.IMPRESSIONNo evidence of acute intracranial pathology. Diffuse generalized cerebral atrophy. Moderate microvascular ischemic disease changes.Electronically signed by: Nayeli Harris (Mar 20, 2022 21:45:15)
--- NOTE | 2022-03-21 01:29 | CT ---
HISTORYabdominal pain, nausea/vomitingSTUDYABDOMEN/PELVIS WITH CONCOMPARISONNone.TECHNIQUESerial axial images were obtained from the lung bases to the pubic symphysis with the administration of intravenous and oral contrast. Soft tissue, lung windows and bone window images were interpreted. Dose reduction techniques were utilized.FINDINGSThe heart is not enlarged. There is extensive atherosclerotic disease of the left anterior descending artery and left main coronary artery. The lung bases reveals a minimal, scant small left pleural effusionThe liver is normal in size and reveals no focal lesions. There is no intrahepatic biliary ductal dilatation or obvious common bile duct dilatation. There are cholecystectomy clips in the gallbladder fossa. The spleen is unremarkable, revealing no focal lesions. The pancreas reveals a focal rounded low attenuated lesion within the body of the pancreas measuring approximately 1.1 cm. It is unclear if this represents a small macrocystic mass lesion. There also focal rounded calcifications within the pancreatic head.The aorta and inferior vena cava are unremarkable. No significant para-aortic or retroperitoneal lymphadenopathy is identified.The kidneys are unremarkable. There are no radiopaque renal, ureteric or urinary bladder calculi. There is no hydronephrosis. There is no obstructive uropathy.Examination of the bowel, greater omentum and mesentery is unremarkable. The appendix is unremarkable with no evidence for acute appendicitis. Examination of the pelvis reveals no pathologic masses or fluid collections. The urinary bladder is unremarkable. There are pelvic phleboliths.There are bridging syndesmophytes throughout the lower thoracic and upper lumbar spine with calcification of the annuli diffusely noted. This is consistent with ankylosing spondylitis and diffuse idiopathic skeletal hyperostosis. There is superior endplate collapse into a Schmorl's node involving L3. At L5-S1 there is a mild disc bulge.IMPRESSION1. Small 1.1 cm rounded low-attenuation lesion within the body of the pancreas. This may represent a small macrocystic mass lesion. A three-month follow-up is recommended for this finding.2. Minimal posteriorly layering left pleural effusion.Electronically signed by: Nayeli Harris (Mar 21, 2022 01:28:26)
[2022-03-21] MEDS: REGLAN INJ 10 MG VIAL IVP SCH ×4 (06:03→21:22)
[2022-03-21] MEDS: NS 1,000 ML IV 1,000 ML IV SCH ×3 (06:09→22:48)
[2022-03-21 06:24] LABS: CALCIUM 8.6 mg/dL (8.5-10.1); CARBON DIOXIDE 27.7 mmol/L (21-32); COR CA(FOR HYPOALB) 9.4 mg/dL (8.5-10.1); CREATININE 1.37 mg/dL (0.55-1.02); MAGNESIUM 1.8 mg/dL (1.7-2.9); TOTAL PROTEIN 6.1 g/dL (6.4-8.2)
[2022-03-21 06:25] LABS: BASOPHILS # (AUTO) 0.1 X10^3/uL (0.0-0.1); EOSINOPHILS # (AUTO) 0.1 x10^3/uL (0.0-0.2); EOSINOPHILS % (AUTO) 2.1 % (0.9-2.9); HEMATOCRIT 31.1 % (36.0-47.0); HEMOGLOBIN 10.7 g/dL (12.0-16.0); LYMPHOCYTES # (AUTO) 1.9 X10^3/uL (1.3-2.9); LYMPHOCYTES % (AUTO) 29.5 % (21.0-51.0); MEAN CORPUSCULAR HEMOGLOBIN 33.2 pg (27.0-34.0); MEAN CORPUSCULAR HGB CONC 34.4 g/dL (33.0-35.0); MEAN CORPUSCULAR VOLUME 96.6 fL (80.0-100.0); MEAN PLATELET VOLUME 9.9 fL (7.4-11.0); MONOCYTES # (AUTO) 0.4 x10^3/uL (0.3-0.8); MONOCYTES % (AUTO) 6.9 % (0.0-13.0); NEUTROPHILS # (AUTO) 3.9 x10^3/uL (2.2-4.8); NEUTROPHILS % (AUTO) 60.5 % (42.0-75.0); RED BLOOD COUNT 3.22 X10^6/uL (3.5-5.4); RED CELL DISTRIBUTION WIDTH 12.4 % (11.6-16.5); WHITE BLOOD COUNT 6.5 X10^3/uL (3.6-10.0)
[2022-03-21] MEDS: SYNTHROID 50 mcg TAB PO SCH (08:00)
[2022-03-21] MEDS: PLAVIX PO SCH (09:20)
[2022-03-21] MEDS: ASPIRIN PO SCH (09:21)
[2022-03-21] MEDS: MEGACE PO SCH ×2 (09:21→21:22)
[2022-03-21] MEDS: VITAMIN B-12 PO SCH (09:22)
[2022-03-21] MEDS: VITAMIN D3 25 mcg (1,000 UNITS) PO SCH (09:22)
[2022-03-21] MEDS: PEPCID 20 MG VIAL 20 MG in NS 50 ML IV 50 ML IV SCH (09:23)
[2022-03-21] MEDS: PROTONIX INJ 40 MG VIAL IVP SCH ×2 (09:26→21:21)
[2022-03-21] MEDS ORDERED: TYLENOL 325 MG TAB PO PRN (16:51)
[2022-03-21] MEDS: SNACK - Diabetic Appropriate PO SCH (21:20)
[2022-03-21] MEDS: CRESTOR TAB 10 MG PO SCH (21:21)
[2022-03-21] MEDS: CYMBALTA PO SCH (21:22)
[2022-03-22 05:12] LABS: BASOPHILS % (AUTO) 0.5 % (0.2-1.0); EOSINOPHILS # (AUTO) 0.2 x10^3/uL (0.0-0.2); EOSINOPHILS % (AUTO) 2.2 % (0.9-2.9); HEMATOCRIT 26.5 % (36.0-47.0); HEMOGLOBIN 9.5 g/dL (12.0-16.0); LYMPHOCYTES # (AUTO) 1.6 X10^3/uL (1.3-2.9); LYMPHOCYTES % (AUTO) 21.7 % (21.0-51.0); MEAN CORPUSCULAR HGB CONC 35.9 g/dL (33.0-35.0); MEAN CORPUSCULAR VOLUME 94.7 fL (80.0-100.0); MONOCYTES # (AUTO) 0.5 x10^3/uL (0.3-0.8); MONOCYTES % (AUTO) 6.1 % (0.0-13.0); NEUTROPHILS # (AUTO) 5.2 x10^3/uL (2.2-4.8); NEUTROPHILS % (AUTO) 69.5 % (42.0-75.0); RED BLOOD COUNT 2.79 X10^6/uL (3.5-5.4); RED CELL DISTRIBUTION WIDTH 12.6 % (11.6-16.5); WHITE BLOOD COUNT 7.4 X10^3/uL (3.6-10.0)
[2022-03-22 05:22] LABS: ALBUMIN 2.7 g/dL (3.4-5.0); CALCIUM 8.4 mg/dL (8.5-10.1); CARBON DIOXIDE 26.7 mmol/L (21-32); COR CA(FOR HYPOALB) 9.4 mg/dL (8.5-10.1); CREATININE 1.37 mg/dL (0.55-1.02); TOTAL PROTEIN 5.5 g/dL (6.4-8.2)
[2022-03-22] MEDS: SYNTHROID 50 mcg TAB PO SCH (06:17)
[2022-03-22] MEDS: REGLAN INJ 10 MG VIAL IVP SCH (06:17)
[2022-03-22] MEDS: NS 1,000 ML IV 1,000 ML IV SCH (08:05)
[2022-03-22] MEDS ORDERED: DULCOLAX SUPPOSITORY 10 MG RECTAL ONE (08:24)
[2022-03-22] MEDS ORDERED: MILK OF MAGNESIA PO ONE (08:25)
[2022-03-22 08:56] VITALS: BP 180/79
[2022-03-22] MEDS: VITAMIN B-12 PO SCH (08:58)
[2022-03-22] MEDS ORDERED: PEPCID 20 MG VIAL 20 MG in NS 50 ML IV 50 ML IV SCH (09:00)
[2022-03-22] MEDS: MEGACE PO SCH (09:00)
[2022-03-22] MEDS: PLAVIX PO SCH (09:00)
[2022-03-22] MEDS: PROTONIX INJ 40 MG VIAL IVP SCH (09:01)
[2022-03-22] MEDS: VITAMIN D3 25 mcg (1,000 UNITS) PO SCH (09:01)
[2022-03-22] MEDS: ASPIRIN PO SCH (09:02)
== END 2022-03-22 12:20 | disposition home or self-care (01) ==
LOC: MED/SURG 10:17 → ER 10:17 → MED/SURG 14:40
PROVIDERS: ADMIT Internal Medicine; ATTEND Internal Medicine
DX: Z79.4 Long term (current) use of insulin; Z20.822 Contact with and (suspected) exposure to COVID-19; R26.89 Other abnormalities of gait and mobility; R94.31 Abnormal electrocardiogram [ECG] [EKG]; R53.1 Weakness; R13.11 Dysphagia, oral phase; R11.2 Nausea with vomiting, unspecified; K31.84 Gastroparesis; E11.65 Type 2 diabetes mellitus with hyperglycemia; E11.43 Type 2 diabetes mellitus with diabetic autonomic (poly)neuropathy; F03.90 Unspecified dementia, unspecified severity, without behavioral disturbance, psychotic disturbance, mood disturbance, and anxiety; I10 Essential (primary) hypertension; H54.10 Blindness, one eye, low vision other eye, unspecified eyes; R63.0 Anorexia